=== PATIENT | female | born 1950 | race Caucasian/White ===

== ENCOUNTER 2017-08-04 15:59 | Observation (INO) ==
[2017-08-04 16:37] VITALS: BMI 40.1
[2017-08-04] MEDS ORDERED: ONDANSETRON 4 MG/2 ML INJECTION IVP PRN (16:48)
[2017-08-04] MEDS ORDERED: HYDROCODONE/APAP 5mg/325mg TABLET PO PRN (16:48)
[2017-08-04] MEDS ORDERED: SALINE FLUSH 10ml SYRINGE IV PRN (16:48)
[2017-08-04] MEDS ORDERED: SENNA + DOCUSATE TABLET PO PRN (16:48)
[2017-08-04] MEDS ORDERED: ACETAMINOPHEN 325 MG TABLET PO PRN (16:48)
[2017-08-04] MEDS ORDERED: MORPHINE SULFATE 4mg INJECTION IVP PRN (16:48)
[2017-08-04] MEDS ORDERED: GLUCOSE ORAL GEL 40% 37.5gm PO PRN (16:56)
--- NOTE | 2017-08-04 17:05 | History & Physical Report ---
History of Present Illness Date: 08/04/17 Chief complaint: cellulitis, left foot fracture, mechanical fall HPI: Judy Montano is a pleasant 66-year-old female patient of Dr. Jevon Davila with a history of diabetes, peripheral neuropathy, asthma, hypertension and GERD. She reports that on 07/25/17 she was ambulating to the bathroom and believes that she tripped, causing her to fall, landing on her knees and injuring her left foot and ankle. She also admits to striking her ribs on her left side on the side of the bath tube. She denies any head injury, loss of consciousness or syncope. No proceeding symptoms prior to falling. She as able to be assisted up by her and did not seek treatment at that time. In the following days, she followed up with her chiropractor 3 times and received "stimulation therapy" to her knees, left ankle and foot as well as her left ribs with minimum improvement in her pain, specifically to her left foot. On 08/01/17 she started to notice increased swelling, pain and redness to her left anterior emery which extended down to her left dorsal and lateral foot as well as significant pain with ambulation. She was seen and evaluated by Dr. Ramirez in clinic today, 08/04/17, and told she has a fracture to her left foot, though is unsure where. Prior x-rays are unable to be reviewed at the time of admission. Due to her increased swelling and pain, Dr. Ramirez was concerned about a possible DVT. Dr. Tran was contacted and Judy was accepted as a direct inpatient admission under the care of Dr. Lewis for further evaluation including doppler ultrasound of her left lower extremity as well as treatment for her fracture with orthopedic evaluation and treatment of her cellulitis. Her length of stay is expected to exceed more than 2 over nights. Review of Systems All systems PM: 10-point ROS was reviewed, no additional remarkable complaints except - Constitutional Constitutional: Absent: chills, fatigue, fever(s), malaise, weakness - EENMT Eyes: Absent: change in vision, photophobia Ears: Absent: ear pain Balance: Absent: vertigo, falling to one side Nose: Absent: nosebleeds Mouth/Throat: Absent: sore throat, changes in swallowing, dry mouth - Cardiovascular Cardiovascular: Absent: chest pain, palpitations, syncope, dyspnea on exertion, orthopnea, edema Rhythm: Present: regular rhythm Vascular: Present: unilateral swelling (left), varicosities. Absent: pallor of an extermity - Respiratory Respiratory: Absent: cough, dyspnea, hemoptysis, dyspnea on exertion - Gastrointestinal Gastrointestinal: Present: constipation. Absent: abdominal pain, nausea, vomiting - Genitourinary Genitourinary: Absent: dysuria, flank pain, hematuria Menstruation: post menopausal - Musculoskeletal Musculoskeletal: Present: abnormal gait (secondary to pain), limited range of motion (left foot/ankle). Absent: back pain, deformity - Integumentary/Breasts Integumentary: Present: swelling. Absent: rash Integumentary Comments: erythema along left anterior and lateral foot and ankle. - Neurological Neurological: Present: abnormal gait (due to pain). Absent: dizziness, frequent falls Neurological Comments: bilateral feet neuropathy. - Psychiatric Psychiatric: Absent: anxiety, depression - Endocrine Endocrine: Absent: flushing, palpitations - Hematologic/Lymphatic Hematologic/Lymphatic: Absent: easy bruising - Allergic/Immunologic Allergic/Immunologic: Absent: seasonal rhinorrhea Past Medical History Medical History Updates: Diabetes, insulin dependent. Hypertension. Asthma. IBS. Constipation. Peripheral neuropathy secondary to diabetes. GERD. Sleep apnea with home CPAP. Cataracts. [place]gaines. Hyperlipidemia. Morbid obesity. Surgical History: *Tonsilectomy. *Bilateral tubal ligation. *Hiatal hernia repair. *Umbilical hernia repair. *Cystoscopy x 2. *Cholecystectomy. * Multiple veins removed from right lower extremity. *Colonscopy - revealed diverticulosis Family History: Father - , age 82, hypertension. Mother - , age 83, diabetes, hypertension. Family History: As Above - Social History Smoking status: Never smoker Substance use type: does not use Alcohol intake frequency: does not drink Housing: house Household members: spouse Current occupational status: employed (customer service) Does patient use chewing tobacco?: No Current residence: Apartment/Private Home Social history: PCP - Dr. Davila. Medications Home Medications Medication Instructions Recorded Confirmed Type Albuterol HFA Inhaler [Ventolin 2 puff ORAL INH O PRN 08/04/17 08/04/17 History Hfa 90 mcg/actuation] Aspirin 1 tab PO QTUTHSU 08/04/17 08/04/17 History Calcium Carb/Vitamin D3/Vit K1 1 each PO DAILY 08/04/17 08/04/17 History [Viactiv Soft Chew Tablet] Dulaglutide [Trulicity] 1.5 mg SQ 1 WEEK 08/04/17 08/04/17 History Fenofibrate,Micronized 200 mg PO HS 08/04/17 08/04/17 History [Fenofibrate] Fish Oil 1,200 mg Fish Oil 2,400 mg PO BID 08/04/17 08/04/17 History Montelukast Sodium [Singulair] 10 mg PO HS 08/04/17 08/04/17 History Olmesartan/Hydrochlorothiazide 1 tab PO DAILY 08/04/17 08/04/17 History [Olmesartan-Hctz 40-25 mg Tab] Omeprazole 1 tab PO DAILY 08/04/17 08/04/17 History Sitagliptin Phos/Metformin HCl 1 tab PO BIDWM 08/04/17 08/04/17 History [Janumet 50-1,000 mg Tablet] Vitamin B-12 250 mg PO QTUTHSU 08/04/17 08/04/17 History Vitamin C 500 mg PO DAILY 08/04/17 08/04/17 History Vitamin D3 3,000 unit PO DAILY 08/04/17 08/04/17 History Allergies Allergy/AdvReac Type Severity Reaction Status Date / Time latex AdvReac Unknown RASH Verified 08/04/17 16:26 Sulfa (Sulfonamide AdvReac Unknown LEG CRAMPS Verified 08/04/17 16:26 Antibiotics) Exam Vital Signs: Temperature 96.8 F 08/04/17 16:08 Pulse Rate 91 08/04/17 16:08 Respiratory Rate 18 08/04/17 16:08 Blood Pressure 158/82 H 08/04/17 16:08 Pulse Oximetry 98 08/04/17 16:08 Height/Weight/BMI: Height 5 ft 3 in Weight 226 lb 13.69 oz Body Mass Index 40.1 Comments: Patient seen immediately upon arrival with and nursing at bedside. - Constitutional Present: no acute distress, well nourished, well developed, morbidly obese, cooperative - Routine HEENT Exam Head: Present: normocephalic, atraumatic Eye: Present: PERRL. Absent: conjunctival icterus ENT: Present: mucous membranes moist, oropharynx clear - Routine Neck Exam Present: supple, full ROM, trachea midline - Routine Chest/Breast/Axilla Exam Chest wall: Absent: pacemaker - Routine Respiratory Exam Present: CTA bilaterally. Absent: respiratory distress, wheezes - Routine Cardiovascular Exam Present: RRR, S1, S2 - Routine Abdominal Exam Present: soft, normoactive bowel sounds, non tender Comments: Morbidly obese. - Routine Extremities Exam Present: pulses intact (bilaterally) Comments: Left foot and lower extremity with swelling and erythema along dorsal and lateral foot extending up anterior and lateral ankle; decreased sensation to bilateral feet secondary to neuropathy. - Routine Back/Spine/Pelvis Exam Back/Spine: Present: full ROM. Absent: vertebral tenderness - Routine Skin Exam Present: dry, warm Comments: afebrile. - Routine Neurological Exam Present: alert, oriented X3, moving all extremities, hearing grossly intact, normal speech - Routine Psychiatric Exam Present: normal affect, cooperative Results - Labs CBC & Chem 7: 08/04/17 17:34 08/04/17 17:34 Assessment and Plan Assessment and Plan: Assessment Left foot fracture - 5th Metatarsal (POA) Cellulitis to left lower extremity (POA) Mechanical fall (POA) - fall on 08/01 Chronic lower ext veinous insufficiency Diabetes, insulin dependent Hypertension Asthma IBS Constipation Peripheral neuropathy secondary to diabetes GERD Sleep apnea with home CPAP Cataracts Migraines Hyperlipidemia Morbid obesity with BMI 40.2 Plan Patient directly admitted to inpatient status under the care of Dr. Lewis. Dr. Sanchez (ortho) was consulted for further evaluation of reported left foot fracture and cellulitis. D-dimer in clinic was elevated at 502. Given swelling and pain with elevated d-dimer, will obtain left foot x-rays and Doppler ultrasound now. Will obtain CBC, CMP, serial lactates and procalcitonin now given concern for cellulitis and history of diabetes - results pending. Monitor blood sugars closely. Continue home diabetes medications - metformin 1000mg daily, Januvia 50mg daily. Medium sliding scale insulin as needed. Monitor blood pressure closely. Continue home HCTZ 25mg daily. [place] and morphine PRN pain. Bowel motivation with senna +, Miralax and milk of mag PRN. GERD and GI protection with home Prilosec. Patient to use home CPAP for sleep apnea. Recheck labs in AM to monitor blood counts, electrolytes and renal function. Upon discharge, patient's care will be returned to her PCP, Dr. Davila. Patient requests to be a FULL CODE. STEPHON Assessment as above with: Elevated lactate secondary to metformin use. No evidence for sepsis. Plan: Did discuss case at length with Dr Manjarrez who has reviewed X-ray -- seeing Fx of left 5th metatarsal. He recommends CAM boot, non-weight bearing, ICE and elevation to help pain, and PT eval to help educate on ambulation - will need walker for assistance. Does not recommend surgery at this time. Doppler negative for DVT - Lovenox 150mg given prior to results. Will decrease Lovenox to 40mg SQ daily. Rocephin started for skin coverage-not seeing signs for sepsis. Lactic acid elevation most likely from metformin use and not acute sepsis. With not finding evidence for sepsis, DVT, or need for surgical repair, OBS admission status is more prudent. DVT Prophylaxis: SCD's, Lovenox GI Prophylaxis: Omeprazole Resuscitation Status: Full Code - Time spent with patient Time with patient PN: 70 minutes - Physician Narrative Physician: Jovanny Lewis MD Narrative: Date: 08/04/17 Time: 1919 Have independently interviewed and examined pt. Chart reviewed. Case discussed with Dr Manjarrez and my PA. Care plan developed with my supervision; agree with above. Was walking at home the morning of 08/01 when lost footing going into bathroom. Fell, landing on her knees and also hitting/twisting left ankle on toilet. Did have significant pain post fall, but was able to get up and ambulate. Unfortunately, pain has increased with time. More sore to walk on left foot. Increasing swelling of foot and leg. Modalities she has been using at home not effective. Was evaluated in urgent care today. Did have X-rays showing 'fracture ' and D-dimer elevated, worrisome for acute DVT (with swelling, warmth, and redness to left foot). Dr Vail contacted Dr Spring for admission. Pt denies any f/c. Breathing well-not having increase SOA, cough, pain with breathing or hemoptysis. No chest pressure or palpitations. Appetite stable. Bowels at baseline. Urinary status stable. Lungs: clear bilaterally CV: regular AB: soft obese nt/nd EXT: left ankle/ distal leg more swollen and warm than right, increased erythema. MSE: awake alert Plan: Did discuss case at length with Dr Manjarrez who has reviewed xray -- seeing Fx of left 5th metatarsal. He recommends CAM boot, non-weight bearing, ICE and elevation to help pain, and PT eval to help educate on ambulation - will need walker for assistance. Does not recommend surgery at this time. Doppler negative for DVT - Lovenox 150mg given prior to results. Will decrease Lovenox to 40mg SQ daily. Rocephin started for skin coverage-not seeing signs for sepsis. Lactic acid elevation most likely from metformin use and not acute sepsis. With not finding evidence for sepsis, DVT, or need for surgical repair, OBS admission status is more prudent. Hospital Course Summary Disclaimer: The visit summary below is not to be considered part of the above Progress Note. Hospital Course: 08/04/17 Patient directly admitted to inpatient status under the care of Dr. Lewis. Dr. Sanchez (ortho) was consulted for further evaluation of reported left foot fracture and cellulitis. D-dimer in clinic was elevated at 502. Given swelling and pain with elevated d-dimer, will obtain left foot x-rays and Doppler ultrasound now. Will obtain CBC, CMP, serial lactates and procalcitonin now given concern for cellulitis and history of diabetes - results pending. Monitor blood sugars closely. Continue home diabetes medications - metformin 1000mg daily, Januvia 50mg daily. Medium sliding scale insulin as needed. Monitor blood pressure closely. Continue home HCTZ 25mg daily. [place] and morphine PRN pain. Bowel motivation with senna +, Miralax and milk of mag PRN. GERD and GI protection with home Prilosec. Patient to use home CPAP for sleep apnea. Recheck labs in AM to monitor blood counts, electrolytes and renal function. Upon discharge, patient's care will be returned to her PCP, Dr. Davila. Patient requests to be a FULL CODE. Did discuss case at length with Dr Manjarrez who has reviewed X-rays -- seeing Fx of left 5th metatarsal. He recommends CAM boot, non-weight bearing, ICE and elevation to help pain, and PT eval to help educate on ambulation - will need walker for assistance. Does not recommend surgery at this time. Doppler negative for DVT - Lovenox 150mg given prior to results. Will decrease Lovenox to 40mg SQ daily. Rocephin started for skin coverage-not seeing signs for sepsis. Lactic acid elevation most likely from metformin use and not acute sepsis. With not finding evidence for sepsis, DVT, or need for surgical repair, OBS admission status is more prudent.
[2017-08-04] MEDS ORDERED: FALL RISK - PHARMACY CONSULT MC ONE (17:25)
[2017-08-04] MEDS: NS 1,000 ML IV SCH (17:31)
[2017-08-04] MEDS ORDERED: ALBUTEROL 2.5mg/3ml (0.083%) NEB AEROSOL PRN (17:42)
[2017-08-04] MEDS: METFORMIN 1,000 MG TABLET PO SCH (18:10)
[2017-08-04] MEDS: SITAGLIPTIN 100 MG TABLET PO SCH (18:10)
[2017-08-04] MEDS: OMEGA-3 ACID ESTERS 1 GM CAPSULE PO SCH (18:10)
[2017-08-04] MEDS: FENOFIBRATE 200 MG PO SCH (18:10)
[2017-08-04] MEDS ORDERED: CEFTRIAXONE 1 G in NS 100 ML IV SCH (18:30)
[2017-08-04] MEDS ORDERED: ENOXAPARIN 150 MG/ML INJECTION SQ SCH (18:30)
--- NOTE | 2017-08-04 18:49 | Orthopedic Consult Note ---
Orthopedic Consultation HPI - Consultation Info Consult Date: 08/04/17 Attending Physician: Jovanny Lewis MD Consult Reason: fracture (Left fifth metatarsal) Review of Systems - Constitutional Constitutional: Present: as per HPI - EENT Eyes: Absent: blurry vision, change in vision Ears, nose, mouth, throat: Absent: headaches, vertigo, lightheadedness, head injury - Cardiovascular Cardiovascular: Absent: chest pain, palpitations, syncope Vascular: Present: pedal edema. Absent: atrophy - Respiratory Respiratory: Absent: cough, dyspnea, wheezing - Gastrointestinal Gastrointestinal: Absent: constipation, diarrhea - Genitourinary Genitourinary General: Absent: anorexia, chills - Musculoskeletal Musculoskeletal: Present: as per HPI - Integumentary/Breasts Integumentary: Present: as per HPI, erythema. Absent: lesions - Neurological Neurological: Absent: numbness, paresthesias, radicular pain Comments: Diabetic neuropathy - Psychiatric Psychiatric: Absent: anxiety, depression - Endocrine Endocrine: Absent: cold intolerance, excessive sweating - Hematologic/Lymphatic Hematologic/Lymphatic: Absent: easy bleeding, easy bruising PFSH Patient Stated Medical History Peripheral Neuropathy Yes Cataracts Yes Other HEENT Yes: wears glasses Hypertension Yes Asthma Yes Sleep Apnea Yes: cpap at night Diabetes Mellitus Type 2 Yes Gastroesophageal Reflux Yes Disease Hiatal Hernia Yes Other GI Yes: IBS Medical History Updates: Diabetes, insulin dependent. Hypertension. Asthma. IBS. Constipation. Peripheral neuropathy secondary to diabetes. GERD. Sleep apnea with home CPAP. Cataracts. Mirgaines. Hyperlipidemia. Morbid obesity. Surgical History: *Tonsilectomy. *Bilateral tubal ligation. *Hiatal hernia repair. *Umbilical hernia repair. *Cystoscopy x 2. *Cholecystectomy. * Multiple veins removed from right lower extremity. *Colonscopy - revealed diverticulosis Family History: Family History (Last Updated 11/08/16 @ 10:18 by Claude Casarez CNA) Mother High blood pressure Diabetic acidosis, type II - Social History Smoking status: Never smoker Substance use type: does not use Alcohol intake: never Alcohol intake frequency: does not drink Housing: house Household members: spouse Current occupational status: employed (customer service) Does patient use chewing tobacco?: No Current residence: Apartment/Private Home Medications Home Medications Medication Instructions Recorded Confirmed Type Albuterol HFA Inhaler [Ventolin 2 puff ORAL INH O PRN 08/04/17 08/04/17 History Hfa 90 mcg/actuation] Aspirin 1 tab PO QTUTHSU 08/04/17 08/04/17 History Calcium Carb/Vitamin D3/Vit K1 1 each PO DAILY 08/04/17 08/04/17 History [Viactiv Soft Chew Tablet] Dulaglutide [Trulicity] 1.5 mg SQ 1 WEEK 08/04/17 08/04/17 History Fenofibrate,Micronized 200 mg PO HS 08/04/17 08/04/17 History [Fenofibrate] Fish Oil 1,200 mg Fish Oil 2,400 mg PO BID 08/04/17 08/04/17 History Montelukast Sodium [Singulair] 10 mg PO HS 08/04/17 08/04/17 History Olmesartan/Hydrochlorothiazide 1 tab PO DAILY 08/04/17 08/04/17 History [Olmesartan-Hctz 40-25 mg Tab] Omeprazole 1 tab PO DAILY 08/04/17 08/04/17 History Sitagliptin Phos/Metformin HCl 1 tab PO BIDWM 08/04/17 08/04/17 History [Janumet 50-1,000 mg Tablet] Vitamin B-12 250 mg PO QTUTHSU 08/04/17 08/04/17 History Vitamin C 500 mg PO DAILY 08/04/17 08/04/17 History Vitamin D3 3,000 unit PO DAILY 08/04/17 08/04/17 History Allergies Allergy/AdvReac Type Severity Reaction Status Date / Time latex AdvReac Unknown RASH Verified 08/04/17 16:26 Sulfa (Sulfonamide AdvReac Unknown LEG CRAMPS Verified 08/04/17 16:26 Antibiotics) Exam - Constitutional Vital Signs: Temperature 96.8 F 08/04/17 16:08 Pulse Rate 91 08/04/17 16:08 Respiratory Rate 18 08/04/17 16:08 Blood Pressure 158/82 H 08/04/17 16:08 Pulse Oximetry 98 08/04/17 16:08 General: no acute distress Nutritional Appearance: obese Orientation: alert, oriented x3 - Gait Gait: antalgic favoring left - Psych Mood: normal Affect: normal Attitude: cooperative - RUE General: normal to inspection, no obvious deformity Skin: no rashes or lesions noted, dry skin, other Shoulder Range of Motion: within normal limits Elbow Range of Motion: within normal limits Wrist Range of Motion: within normal limits Neurological: normal to light touch, strength 5/5 throughout - LUE General: normal to inspection, no obvious deformity Skin: no rashes or lesions noted Shoulder Range of Motion: within normal limits Elbow Range of Motion: within normal limits Wrist Range of Motion: within normal limits Neurological: normal to light touch, strength 5/5 throughout - RLE General: normal to inspection, no obvious deformity Knee: stable to ligament exam, no effusion Knee Palpation: Nontender to Palpation: medial joint line, lateral joint line, anterior, posterior Hip: negative straight leg raise Hip Palpation: Nontender: greater trochanteric bursa Skin: no rashes or lesions noted Knee Range of Motion: within normal limits Neurological: normal to light touch Vascular: dorsalis pedis pulse within normal limits, tibialis posterior pulse within normal limits - LLE General: no obvious deformity, edema (left foot), other (erythema) Knee: stable to ligament exam, no effusion Knee Palpation: Nontender to Palpation medial joint line, Nontender to Palpation lateral joint line, Nontender to Palpation anterior, Nontender to Palpation posterior Hip: negative straight leg raise Hip Palpation: Nontender: greater trochanteric bursa Skin: no rashes or lesions noted, no lacerations or abrasions, erythema, other ( medial leg venous stasis without open ulceration, mild surrounding erythema) Knee Range of Motion: within normal limits Neurological: decreased sensation to light touch, strength 5/5 throughout, no muscle atrophy Vascular: tibialis posterior pulse within normal limits, capillary refill <2 seconds - Respiratory Respiratory Exam: CTA bilaterally, non-labored - Cardiac Cardiovascular exam: Regular Rate/Rhythm, peripheral edema - Abdominal GI/Abdominal Exam: soft, normoactive BS x4, other (NT, ND) - Labs Result Diagrams: 08/04/17 17:34 18 17:34 Abnormal lab results 08/04/17 08/04/17 Range/Units 17:34 17:34 WBC 4.2 L (4.5-11.0) T/MM3 MPV 9.0 L (9.4-12.4) UM3 [place] % (Auto) 9.4 H (0-9.0) % Creatinine 0.4 L (0.7-1.2) mg/dL BUN/Creatinine Ratio 30 H (6-26) RATIO Glucose 156 H (65-110) MG/DL H & H 08/04/17 Range/Units 17:34 Hgb 12.4 (12-16) GM/DL Hct 37.8 (36-46) % - Diagnostic results Ankle/Foot x-ray: image reviewed (Comminuted 5th metatarsal shaft and base fx with severe underlying osteopenia. Multiple cock-up deformity toes that appear chronic) Impression and Recommendation (1) Closed fracture of fifth metatarsal bone of left foot Current visit: Yes Qualifiers: Qualified Code(s): S92.352A - Displaced fracture of fifth metatarsal bone, left foot, initial encounter for closed fracture Status: Acute Elevate LLE CAM Boot to LLE at all times Ice prn May use compression hose or [place] bandage if tolerable NWB LLE PT consult to eval and tx FU in Ortho Clinic with any available provider approx 1 week after DC (2) Osteopenia Current visit: Yes Qualifiers: Qualified Code(s): M85.872 - Other specified disorders of bone density and structure, left ankle and foot Status: Chronic Hospital Course Summary Disclaimer: The visit summary below is not to be considered part of the above Progress Note. Hospital Course: Plan - 08/04/17: Patient directly admitted to inpatient status under the care of Dr. Lewis. Dr. Sanchez (ortho) was consulted for further evaluation of reported left foot fracture and cellulitis. D-dimer in clinic was elevated at 502. Given swelling and pain with elevated d-dimer, will obtain left foot x-rays and Doppler ultrasound now. Will obtain CBC, CMP, serial lactates and procalcitonin now given concern for cellulitis and history of diabetes - results pending. Monitor blood sugars closely. Continue home diabetes medications - metformin 1000mg daily, Januvia 50mg daily. Medium sliding scale insulin as needed. Monitor blood pressure closely. Continue home HCTZ 25mg daily. [place] and morphine PRN pain. Bowel motivation with senna +, miralax and milk of mag PRN. GERD and GI protection with home Prilosec. Patient to use home CPAP for sleep apnea. Recheck labs in AM to monitor blood counts, electrolytes and renal function. Upon discharge, patient's care will be returned to her PCP, Dr. Davila. Patient requests to be a FULL CODE.
[2017-08-04] MEDS ORDERED: BISACODYL 10 MG SUPPOSITORY RECTALLY PRN (18:51)
[2017-08-04] MEDS ORDERED: FISH OIL PO SCH (21:00)
[2017-08-04] MEDS ORDERED: FENOFIBRATE 200 MG PO SCH (21:00)
[2017-08-04] MEDS ORDERED: MONTELUKAST 10 MG TABLET PO SCH (21:00)
[2017-08-04] MEDS ORDERED: OMEGA-3 ACID ESTERS 1 GM CAPSULE PO SCH (21:00)
[2017-08-04] MEDS: INSULIN ASPART 100unit/ml INJECTION SQ PRN (21:32)
[2017-08-05] MEDS: INSULIN ASPART 100unit/ml INJECTION SQ PRN ×2 (06:12→11:15)
[2017-08-05] MEDS ORDERED: OMEPRAZOLE 20 MG CAPSULE PO SCH (06:30)
[2017-08-05] MEDS: NS 1,000 ML IV SCH (07:46)
[2017-08-05] MEDS ORDERED: ASCORBIC ACID 500 MG TABLET PO SCH (09:00)
[2017-08-05] MEDS ORDERED: HYDROCHLOROTHIAZIDE PO SCH (09:00)
[2017-08-05] MEDS ORDERED: [UNRECOGNIZED DRUG - OTHER] PO SCH (09:00)
[2017-08-05] MEDS ORDERED: [UNRECOGNIZED DRUG - OTHER] PO SCH (09:00)
[2017-08-05] MEDS ORDERED: SITAGLIPTIN 100 MG TABLET PO SCH (09:00)
[2017-08-05] MEDS ORDERED: VITAMIN D3 PO SCH ×2 (09:00)
[2017-08-05] MEDS ORDERED: VITAMIN C 500 MG PO SCH (09:00)
[2017-08-05] MEDS ORDERED: OMEPRAZOLE PO SCH (09:00)
[2017-08-05] MEDS ORDERED: OLMESARTAN 40 MG TABLET PO SCH (09:00)
[2017-08-05] MEDS ORDERED: CALCIUM 600 + VIT D 400 TABLET PO SCH (09:00)
[2017-08-05] MEDS ORDERED: POLYETHYL GLYCOL 3350 17gm PACKET PO SCH (09:00)
[2017-08-05] MEDS ORDERED: CALCIUM CARB PO SCH (09:00)
[2017-08-05] MEDS ORDERED: METFORMIN 1,000 MG TABLET PO SCH (09:00)
[2017-08-05] MEDS ORDERED: VIT K1 PO SCH (09:00)
[2017-08-05] MEDS ORDERED: OLMESARTAN PO SCH (09:00)
[2017-08-05] MEDS: SITAGLIPTIN 100 MG TABLET PO SCH ×2 (09:09→18:26)
[2017-08-05] MEDS: OMEGA-3 ACID ESTERS 1 GM CAPSULE PO SCH ×2 (09:10→18:26)
[2017-08-05] MEDS: METFORMIN 1,000 MG TABLET PO SCH ×2 (09:10→18:26)
--- NOTE | 2017-08-05 09:19 | Progress Note ---
- Date 08/05/17 Subjective: F/U: left 5th metatarsal fracture, left lower extremity cellulitis. Judy is seen this morning while eating breakfast in her recliner. Cam boot noted to left foot with foot elevated per recommendations. She reports that she is doing well. She states she didn't sleep well due to her chronic neck pain but denies any other complains or concerns. No fevers, chills, chest pain , shortness of breath, abdominal pain, nausea, vomiting or dysuria. Her appetite is good and urinary output is stable. Erythema to left foot is significantly improved. Left foot x-ray revealed left 5th metatarsal fracture. Doppler ultra sound results pending. She was seen by Dr. Manjarrez who recommended CAM boot to left foot at all time and non-weight bearing with elevation and ice as tolerated. She was instructed to follow up in ortho clinic 1 week following discharge from hospital. Labs remain stable. Leukopenia noted (WBC 3.4) which was present on admission. Blood sugars slightly elevated, though relatively stable. Objective Vital signs: Temperature 96.6 F L 08/05/17 07:34 Pulse Rate 90 08/05/17 07:34 Respiratory Rate 18 08/05/17 07:34 Blood Pressure 145/83 H 08/05/17 07:34 Pulse Oximetry 98 08/05/17 07:34 Height/Weight/BMI: Height 5 ft 3 in Weight 225 lb 15.581 oz Body Mass Index 40.1 Comments: Eating breakfast in recliner with foot elevated and CAM walker on. - Constitutional Present: no acute distress, well nourished, well developed, cooperative - Routine HEENT Exam Head: Present: normocephalic, atraumatic Eye: Present: PERRL. Absent: conjunctival icterus ENT: Present: mucous membranes moist, oropharynx clear - Routine Respiratory Exam Present: CTA bilaterally. Absent: respiratory distress, wheezes - Routine Cardiovascular Exam Present: RRR, S1, S2 - Routine Abdominal Exam Present: soft, normoactive bowel sounds, non distended, non tender - Routine Extremities Exam Present: pulses intact Comments: CAM walker to left foot. No edema to right foot. Mild swelling with improved erythema to left foot. 2+ pedal pulses bilaterally. - Routine Back/Spine/Pelvis Exam Back/Spine: Present: full ROM. Absent: vertebral tenderness - Routine Musculoskeletal Exam Musculoskeletal: Present: no clubbing or cyanosis, moving extremities well - Routine Skin Exam Present: dry, warm Comments: Afebrile. - Routine Neurological Exam Present: alert, oriented X3, moving all extremities, hearing grossly intact, normal speech - Routine Lymphatic Exam Lymphatic: Absent: lymphedema - Routine Psychiatric Exam Present: cooperative Results - Labs CBC & Chem 7: 08/05/17 04:35 08/05/17 04:35 Assessment and Plan Assessment and Plan: Assessment Left foot fracture - 5th Metatarsal (POA) Cellulitis to left lower extremity (POA) Mechanical fall (POA) - fall on 08/01 Chronic lower ext veinous insufficiency Diabetes, insulin dependent Hypertension Asthma IBS Constipation Peripheral neuropathy secondary to diabetes GERD Sleep apnea with home CPAP Cataracts Migraines Hyperlipidemia Morbid obesity with BMI 40.2 Plan - 08/05/[address] Manjarrez (ortho). CAM boot placed to left foot to be worn at all times - patient non-weight bearing. Encourage elevation and ice to left foot. Patient will need a walker for ambulation. Patient expresses concern about how she will "get around" on one foot. Consult PT/OT for evaluation and strengthening as well as improvement in function abilities. X-ray revealed 5th metatarsal fracture on the left. Preliminary ultra sound revealed no DVT. Persistent luekopenia (WBC 3.4). Patient remains afebrile. Blood sugars slightly elevated but stable. Continue to monitor. Contineu to monitor blood pressure closely. Continue home HCTZ 25mg daily. Hustler and morphine PRN pain. Bowel motivation with senna +, Miralax and milk of mag PRN. GERD and GI protection with home Prilosec. Patient to use home CPAP for sleep apnea. Anticipate discharge in near future, hopefully today. Continue Lovenox to 40mg SQ daily for DVT prophylaxis.. Continue Rocephin for empiric antimicrobial coverage of suspected skin pathogens. Lactic acid elevation most likely from metformin use and not acute sepsis. DVT Prophylaxis: SCD's, Lovenox GI Prophylaxis: Omeprazole Resuscitation Status: Full Code - Time spent with patient Time with patient PN: 30 minutes - Physician Narrative Physician: Jovanny Lewis MD Narrative: Date: 08/05/17 Time: 1700 Have independently interviewed and examined pt. Chart reviewed. Case discussed with Dr Manjarrez, pt's , and my PA. Care plan developed with my supervision; agree with above. Doing better today. Pain much decreased, not needing pain medications. Tolerating CAM boot. No n/v. Breathing well. Lungs: decreased, no distress CV: regular AB: soft nt/nd MSE: awake alert appropriate Plan: Medically stable for discharge to home. Continue with CAM boot - non weight bearing. has obtained a walker for patient to use. May use Hustler prn pain-discussed potential side effects. F/U with Dr Davila in [address] Manjarrez in 2 weeks. See orders for details. Hospital Course Summary Disclaimer: The visit summary below is not to be considered part of the above Progress Note. Hospital Course: 08/04/17 Patient directly admitted to inpatient status under the care of Dr. Lewis. Dr. Sanchez (ortho) was consulted for further evaluation of reported left foot fracture and cellulitis. D-dimer in clinic was elevated at 502. Given swelling and pain with elevated d-dimer, will obtain left foot x-rays and Doppler ultrasound now. Will obtain CBC, CMP, serial lactates and procalcitonin now given concern for cellulitis and history of diabetes - results pending. Monitor blood sugars closely. Continue home diabetes medications - metformin 1000mg daily, Januvia 50mg daily. Medium sliding scale insulin as needed. Monitor blood pressure closely. Continue home HCTZ 25mg daily. Hustler and morphine PRN pain. Bowel motivation with senna +, Miralax and milk of mag PRN. GERD and GI protection with home Prilosec. Patient to use home CPAP for sleep apnea. Recheck labs in AM to monitor blood counts, electrolytes and renal function. Upon discharge, patient's care will be returned to her PCP, Dr. Davila. Patient requests to be a FULL CODE. Did discuss case at length with Dr Manjarrez who has reviewed X-rays -- seeing Fx of left 5th metatarsal. He recommends CAM boot, non-weight bearing, ICE and elevation to help pain, and PT eval to help educate on ambulation - will need walker for assistance. Does not recommend surgery at this time. Doppler negative for DVT - Lovenox 150mg given prior to results. Will decrease Lovenox to 40mg SQ daily. Rocephin started for skin coverage-not seeing signs for sepsis. Lactic acid elevation most likely from metformin use and not acute sepsis. With not finding evidence for sepsis, DVT, or need for surgical repair, OBS admission status is more prudent. 08/05/[address] Manjarrez (ortho). CAM boot placed to left foot to be worn at all times - patient non-weight bearing. Encourage elevation and ice to left foot. Patient will need a walker for ambulation. Patient expresses concern about how she will "get around" on one foot. Consult PT/OT for evaluation and strengthening as well as improvement in function abilities. Persistent leukopenia (WBC 3.4). Patient remains afebrile. Blood sugars slightly elevated but stable. Continue to monitor. Doing well this afternoon. Getting around better. Pain controlled well. Medically stable for discharge to home. Continue with CAM boot - non weight bearing. has obtained a walker for patient to use. May use Hustler prn pain-discussed potential side effects. F/U with Dr Davila in [address] Manjarrez in 2 weeks. May return to work on August 09, 2017. See orders for details.
[2017-08-05] MEDS ORDERED: VITAMIN B12 PO SCH (12:00)
[2017-08-05 15:51] VITALS: BP 139/76; PULSE 95; RESP 22; TEMP 97.5; O2SAT 95
--- NOTE | 2017-08-05 17:21 | Work/School Release ---
Work/School Release - Date Date: 08/05/17 - Work Release Remain off work/school for:: Judy Montano was hospitalized at [facility] from August 04 until Aug 05 2017. She may return to work on August 09, 2017. She is to be non weight bearing on her left foot and to use walker for assistance. She need to be able to elevate her left foot when at rest.
[2017-08-05] MEDS: FENOFIBRATE 200 MG PO SCH (18:26)
--- NOTE | 2017-08-05 20:19 | Discharge Summary ---
Discharge Information Date of admission: 08/04/17 16:48 Anticipated date of discharge: 08/05/17 Attending Physician: Jovanny Lewis MD Primary care physician: Jevon Davila DO Consults: Physician Consult: Dr Manjarrez Reason For Exam: left foot fracture Physical therapy - Discharge Diagnosis (1) Closed fracture of fifth metatarsal bone of left foot Status: Acute Discharge diagnosis Left foot fracture - 5th Metatarsal (POA) Associated conditions and complications R/O Cellulitis to left lower extremity - resolved, no evidence for cellulitis Mechanical fall (POA) - fall on 08/01 Chronic lower ext veinous insufficiency Elevated lactate secondary to metformin use - no evidence for sepsis Diabetes, insulin dependent Hypertension Asthma IBS Constipation Peripheral neuropathy secondary to diabetes GERD Sleep apnea with home CPAP Cataracts Migraines Hyperlipidemia Morbid obesity with BMI 40.2 - Laboratory Labs: Admit Lab 08/04/17 17:34 WBC 4.2 L Hgb 12.4 Hct 37.8 MCV 84.0 Plt Count 327 Neut % (Auto) 56.4 Lymph % (Auto) 29.6 [place] % (Auto) 9.4 H Eos % (Auto) 3.6 Baso % (Auto) 0.5 Admit Lab 08/04/17 08/04/17 17:34 17:34 Sodium 139 Potassium 3.7 Chloride 101 Carbon Dioxide 23 Anion Gap 15 BUN 12.0 Creatinine 0.4 L GFR Calculation 161 BUN/Creatinine Ratio 30 H Glucose 156 H Calculated Osmolality 271 Calcium 10.2 Total Bilirubin 0.50 AST 24 ALT 26 Alkaline Phosphatase 118 Total Protein 7.7 Albumin 4.3 Globulin 3.4 Albumin/Globulin Ratio 1.3 Plasma Lactate 2.2 Procalcitonin < 0.05 08/05/17 04:35 08/05/17 04:35 Pending Lab 08/05/17 13:00 25-OH Vitamin D Total Pending - Radiology Radiology: Bilateral lower ext Veinous Doppler Negative for DVT History of Present Illness HPI: Judy Montano is a pleasant 66-year-old female patient of Dr. Jevon Davila with a history of diabetes, peripheral neuropathy, asthma, hypertension and GERD. She reports that on 07/25/17 she was ambulating to the bathroom and believes that she tripped, causing her to fall, landing on her knees and injuring her left foot and ankle. She also admits to striking her ribs on her left side on the side of the bath tube. She denies any head injury, loss of consciousness or syncope. No proceeding symptoms prior to falling. She as able to be assisted up by her and did not seek treatment at that time. In the following days, she followed up with her chiropractor 3 times and received "stimulation therapy" to her knees, left ankle and foot as well as her left ribs with minimum improvement in her pain, specifically to her left foot. On 08/01/17 she started to notice increased swelling, pain and redness to her left anterior emery which extended down to her left dorsal and lateral foot as well as significant pain with ambulation. She was seen and evaluated by Dr. Ramirez in clinic today, 08/04/17, and told she has a fracture to her left foot, though is unsure where. Prior x-rays are unable to be reviewed at the time of admission. Due to her increased swelling and pain, Dr. Ramirez was concerned about a possible DVT. Dr. Tran was contacted and Judy was accepted as a direct inpatient admission under the care of Dr. Lewis for further evaluation including Doppler ultrasound of her left lower extremity as well as treatment for her fracture with orthopedic evaluation and treatment of her cellulitis. For complete details of the H&P refer to that document. Objective Vital signs: Temperature 97.5 F 08/05/17 15:51 Pulse Rate 95 08/05/17 15:51 Respiratory Rate 22 08/05/17 15:51 Blood Pressure 139/76 08/05/17 15:51 Pulse Oximetry 95 08/05/17 15:51 Height/Weight/BMI: Height 1.6 m Weight 102.1 kg Body Mass Index 40.1 Hospital Course This is a general summary of the patient's hospital course. For more details refer to the complete medical record. Hospital course: 08/04/17 Patient directly admitted to inpatient status under the care of Dr. Lewis. Dr. Sanchez (ortho) was consulted for further evaluation of reported left foot fracture and cellulitis. D-dimer in clinic was elevated at 502. Given swelling and pain with elevated d-dimer, will obtain left foot x-rays and Doppler ultrasound now. Will obtain CBC, CMP, serial lactates and procalcitonin now given concern for cellulitis and history of diabetes - results pending. Monitor blood sugars closely. Continue home diabetes medications - metformin 1000mg daily, Januvia 50mg daily. Medium sliding scale insulin as needed. Monitor blood pressure closely. Continue home HCTZ 25mg daily. [place] and morphine PRN pain. Bowel motivation with senna +, Miralax and milk of mag PRN. GERD and GI protection with home Prilosec. Patient to use home CPAP for sleep apnea. Recheck labs in AM to monitor blood counts, electrolytes and renal function. Upon discharge, patient's care will be returned to her PCP, Dr. Davila. Patient requests to be a FULL CODE. Did discuss case at length with Dr Manjarrez who has reviewed X-rays -- seeing Fx of left 5th metatarsal. He recommends CAM boot, non-weight bearing, ICE and elevation to help pain, and PT eval to help educate on ambulation - will need walker for assistance. Does not recommend surgery at this time. Doppler negative for DVT - Lovenox 150mg given prior to results. Will decrease Lovenox to 40mg SQ daily. Rocephin started for skin coverage-not seeing signs for sepsis. Lactic acid elevation most likely from metformin use and not acute sepsis. With not finding evidence for sepsis, DVT, or need for surgical repair, OBS admission status is more prudent. 08/05/[address] Manjarrez (ortho). CAM boot placed to left foot to be worn at all times - patient non-weight bearing. Encourage elevation and ice to left foot. Patient will need a walker for ambulation. Patient expresses concern about how she will "get around" on one foot. Consult PT/OT for evaluation and strengthening as well as improvement in function abilities. Persistent leukopenia (WBC 3.4). Patient remains afebrile. Blood sugars slightly elevated but stable. Continue to monitor. Doing well this afternoon. Getting around better. Pain controlled well. Medically stable for discharge to home. Continue with CAM boot - non weight bearing. has obtained a walker for patient to use. May use [place] prn pain-discussed potential side effects. F/U with Dr Davila in [address] Manjarrez in 2 weeks. May return to work on August 09, 2017. See orders for details. Time spent with patient: discharge greater than 30 minutes Resuscitation Status: Full Code Discharge Plan - Discharge Disposition Discharge Date: 08/05/17 Disposition: 01 Discharged Home, Self-Care *Condition: Stable Reason For Visit (Visit label in EMR): Left foot fracture, cellulitis - Discharge Medications *Discharge Medications: New Hydrocodone/APAP 5/325 [[place] 5/325] 1 tab PO Q6H PRN #30 tab PRN Reason: Pain Milk of Magnesia [Mom] 30 ml PO PRN PRN udc PRN Reason: Constipation PEG 3350 17gm PACKET [Miralax] 17 gm PO DAILY PRN packet PRN Reason: Constipation Senna + Docusate [Senna Plus Tablet] 1 tab PO BID PRN tab PRN Reason: Constipation Continue Montelukast Sodium [Singulair] 10 mg PO HS Olmesartan/Hydrochlorothiazide [Olmesartan-Hctz 40-25 mg Tab] 1 tab PO DAILY Sitagliptin Phos/Metformin HCl [Janumet 50-1,000 mg Tablet] 1 tab PO BIDWM Fenofibrate,Micronized [Fenofibrate] 200 mg PO HS Calcium Carb/Vitamin D3/Vit K1 [Viactiv Soft Chew] 1 each PO DAILY Vitamin C 500 mg PO DAILY Fish Oil 1,200 mg Fish Oil 2,400 mg PO BID Aspirin 1 tab PO QTUTHSU Vitamin D3 3,000 unit PO DAILY Dulaglutide [Trulicity] 1.5 mg SQ 1 WEEK Omeprazole 1 tab PO DAILY Albuterol HFA Inhaler [Ventolin Hfa 90 mcg/actuation] 2 puff ORAL INH O PRN PRN Reason: Shortness Of Air/Wheezing Vitamin B-12 250 mg PO QTUTHSU - Discharge Packet/Instructions *Diet: 2000 KCAL ADA low sodium *Activity: Wear CAM boot at all times. Nonweight bearing on left foot. Elevate left foot at rest. *Pain Management/Treatment: May use [place] 5/325 as needed for severe pain. Tylenol as needed for pain. Maximum Tylenol (325mg in [place]) is 3250 mg in any 24 hour period of time. Elevation will help decrease pain. ICE as needed for pain. *Wound Care: n/a Additional Instructions: [place] can cause constipation. May use MOM, Miralax, Senna Plus as needed. *Expected Signs/Symptoms: Decreasing pain as fracture heals. *Notify Physician if: Temp >100.4. Uncontrolled pain. *During Business Hours Contact: Dr Davila *After Business Hours Contact: Call [facility] and have Dr Davila contacted. *Pending Lab/Results: Follow up w/your PCP - Referrals/Follow Up *Referrals/Follow Up: Jevon Davila DO [Primary Care Provider] - 1 Week (Call on Monday for hospital f/u this week - Foot fracture. ) Yves Manjarrez MD [Physician] - 2 Weeks (Call on Monday for apt for hospital follow up for left foot fracture. ) - Patient Handouts Patient Handouts: Foot Fracture in Adults (DC) - Dismissal Complete Discharge Instructions are:: Complete Physician Narrative - Narrative Physician: Jovanny Lewis MD Attestation Narrative: Date: 08/05/17 Time: 2015 I have independently interviewed and examined patient prior to discharge. See my progress note for details. Medically stable for discharge to home.
[2017-08-06] MEDS ORDERED: CYANOCOBALAMIN (B-12) 500mcg TABLET PO SCH (09:00)
--- NOTE | 2017-08-06 12:33 | Ultrasound Report ---
Indication: left calf pain/swelling PROCEDURE: US venous doppler LE LT: Encounter: Initial Comparison: None Technique: Color Doppler duplex and grayscale sonographic imaging of the left lower extremity was performed. Findings: There is no evidence for acute deep venous thrombosis in the left thigh. Specifically, serial graded compression was performed from the inguinal ligament to the popliteal bifurcation, on the left thigh, demonstrating appropriate compressibility of the deep venous system. In addition, color and pulsed Doppler demonstrate appropriate spontaneous flow, variation with respiration, and augmentation with calf compression. At the ankle, normal flow is identified in the posterior tibial veins; these vessels are also normal in caliber. Impression: No evidence of acute DVT in the left lower limb. There is a preliminary report by [facility]. .
--- NOTE | 2017-08-06 12:37 | XRay Report ---
Indication: left foot pain/swelling PROCEDURE: XR foot LT min 3V: Encounter: Initial Comparison: Radiographs dated earlier on August 04, 2017 Findings: Redemonstration of the mildly comminuted and displaced fracture of the fifth metatarsal shaft and fifth metatarsal base. Hammertoe deformities. No definite dislocation. Bony demineralization. Impression: Closed posttraumatic fifth metatarsal shaft and base fracture. There is a preliminary report by [facility]. .
[2017-08-09] MEDS ORDERED: NON-FORMULARY MEDICATION 1 EACH EACH (Dulaglutide [Trulicity] 1.5 MG) PO SCH (09:00)
== END 2017-08-05 18:15 | disposition home or self-care (01) ==
LOC: MED 15:59 → SUATTDRO 15:59 → INTOOBSV 15:59
PROVIDERS: ADMIT Hospitalist; ATTEND Hospitalist